=== PATIENT | female | born 1960 | race Caucasian/White ===

== ENCOUNTER 2017-01-06 08:17 | Outpatient (CLI) | payer OTHER ==
[~2017-01-06 08:17] MED LIST: CYCLOBENZAPRINE10 MG PO; PERCOCET1 TA4 PO; PROBIOTI1 PO; ZOFRAN4 MG PO
--- NOTE | 2017-01-06 11:58 | DIAGNOSTIC IMAGING REPORT ---
PROCEDURE: MG BILATERAL SCREENING W/CAD INDICATION: SCREENING TECHNIQUE: Bilateral CC and MLO digital views. COMPARISON: Compared to 12/01/2015, 11/16/2014, and 11/16/2013. FINDINGS: Computer-aided detection applied. Moderately dense. No change. IMPRESSION: 1. Negative mammogram RESULT CODE: 1- Negative. A. A negative report should not delay biopsy if a dominant or clinically suspicious mass is present. 10-15% of cancers are not identified by x-ray. B. A negative report may reinforce clinical impression. C. Adenosis and dense breasts may obscure an underlying neoplasm. D. False positive reports average 6-10%. E.. A yearly screening mammogram is recommended. A reminder letter will be scheduled.
== END 2017-01-06 23:00 ==
LOC: MAM SRH 08:17
DX: Z12.31 Encounter for screening mammogram for malignant neoplasm of breast (principal)